=== PATIENT | female | born 1955 | race Caucasian/White ===

== ENCOUNTER 2020-06-14 12:54 | Inpatient (IN) | payer MEDICARE, OTHER ==
[~2020-06-14] VITALS: Ht 157.5 cm; Wt 63.5 kg
[2020-06-14] MEDS ORDERED: DEXTROSE 50%-WATER 25 GM/50 ML SYRINGE IVP PRN (15:30)
[2020-06-14 16:00] VITALS: BP 98/55
[2020-06-14] MEDS ORDERED: ACETAMINOPHEN 325 MG TABLET PO PRN (16:45)
[2020-06-14] MEDS: MetFORMIN HCL 500 MG TABLET PO SCH (17:39)
[2020-06-14 18:31] LABS: GLUCOMETER DEV NAME(LOC) 2WR.1C; GLUCOSE,POINT OF CARE 207 MG/DL (70-110)
[2020-06-14] MEDS: INSULIN REGULAR, HUMAN 100 UNITS/ML SQ PRN ×2 (18:38→23:21)
[2020-06-14] MEDS: SENNA 187 MG TABLET PO SCH ×2 (20:45→21:00)
[2020-06-14] MEDS: DOCUSATE SODIUM 100 MG CAPSULE PO SCH ×2 (20:45→21:00)
[2020-06-14] MEDS: ATORVASTATIN CALCIUM 40 MG TABLET PO SCH (20:45)
[2020-06-14] MEDS: MELATONIN 3 MG TABLET PO PRN (23:26)
[2020-06-15] VITALS: BP 128/60
[2020-06-15] MEDS ORDERED: METF-960 PO (04:20)
[2020-06-15] MEDS ORDERED: GLIP10 PO (04:20)
[2020-06-15 05:34] LABS: GLUCOMETER DEV NAME(LOC) 2WR.1C; GLUCOSE,POINT OF CARE 214 MG/DL (70-110)
[2020-06-15] MEDS: INSULIN REGULAR, HUMAN 100 UNITS/ML SQ PRN ×3 (05:42→18:11)
[2020-06-15 06:03] LABS: GLUCOMETER DEV NAME(LOC) 2WR.2B; GLUCOSE,POINT OF CARE 182 MG/DL (70-110)
[2020-06-15 06:44] LABS: BASOPHILS % (AUTO) 0.9 % (0.0-2.0); EOSINOPHILS % (AUTO) 1.8 % (1.0-6.0); HEMOGLOBIN 12.1 g/dL (12.0-16.0); LYMPHOCYTES # (AUTO) 1.8 K/uL (1.0-4.8); LYMPHOCYTES % (AUTO) 18.3 % (22.0-44.0); MEAN CORPUSCULAR HEMOGLOBIN 32.5 pg (26.0-34.0); MEAN CORPUSCULAR HGB CONC 33.6 G/dL (31.0-37.0); MEAN CORPUSCULAR VOLUME 97 fL (80-100); MONOCYTES # (AUTO) 0.7 K/uL (0.1-1.0); MONOCYTES % (AUTO) 7.1 % (2.0-9.0); NEUTROPHILS # (AUTO) 7.1 K/uL (1.8-7.7); NEUTROPHILS % (AUTO) 71.9 % (40.0-70.0); PLATELET COUNT (AUTO) 389 K/uL (150-450); RED BLOOD CELL COUNT(AUTO) 3.72 MIL/uL (4.00-5.20); RED CELL DISTRIBUTION WIDTH 13.2 % (11.5-14.5)
[2020-06-15 07:53] LABS: ALANINE AMINOTRANSFERASE 9 U/L (12-78); ALBUMIN 2.7 g/dL (3.4-5.0); ALKALINE PHOSPHATASE 103 U/L (46-116); ANION GAP 7 mmol/L (8-16); ASPARTATE AMINOTRANSFERASE 21 U/L (15-37); BILIRUBIN,TOTAL 0.2 mg/dL (0.1-1.0); CALCIUM, TOTAL 9.5 mg/dL (8.8-10.5); CARBON DIOXIDE 28 mmol/L (22-29); CHLORIDE 104 mmol/L (98-107); CREATININE 0.76 mg/dL (0.60-1.30); GLOMERULAR FILTR. RATE CALC > 60 mL/min (>60); GLUCOSE,RANDOM 186 mg/dL (70-110); POTASSIUM 4.5 mmol/L (3.5-5.1); SODIUM SERUM 139 mmol/L (136-145); TOTAL PROTEIN, SERUM 6.9 g/dL (6.4-8.2); UREA NITROGEN, BLOOD 24 mg/dL (7-18)
[2020-06-15] MEDS: ASPIRIN 325 MG TABLET PO SCH (08:02)
[2020-06-15] MEDS: MetFORMIN HCL 500 MG TABLET PO SCH ×2 (08:03→18:10)
[2020-06-15] MEDS: ENOXAPARIN SODIUM 40 MG/0.4 ML PF SYRINGE SQ SCH (08:03)
[2020-06-15] MEDS: GlipiZIDE 10 MG TABLET PO SCH ×2 (08:03→18:10)
[2020-06-15] MEDS: DOCUSATE SODIUM 100 MG CAPSULE PO SCH ×2 (08:03→21:02)
[2020-06-15 08:06] VITALS: BP 106/59
[2020-06-15 13:27] LABS: GLUCOMETER DEV NAME(LOC) 2WR.2B; GLUCOSE,POINT OF CARE 142 MG/DL (70-110)
[2020-06-15 20:44] LABS: GLUCOMETER DEV NAME(LOC) 2WR.2B; GLUCOSE,POINT OF CARE 167 MG/DL (70-110)
[2020-06-15] MEDS: INSULIN GLARGINE,HUM.REC.ANLOG 100 UNITS/ML SQ SCH (20:59)
[2020-06-15] MEDS: BETAMETHASONE DIP 0.05% 15 GM OINTMENT TP SCH (21:01)
[2020-06-15] MEDS: SENNA 187 MG TABLET PO SCH (21:02)
[2020-06-15] MEDS: ATORVASTATIN CALCIUM 40 MG TABLET PO SCH (21:02)
[2020-06-15] MEDS: MELATONIN 3 MG TABLET PO PRN (21:02)
[2020-06-15 22:12] VITALS: BP 95/56
[2020-06-15 23:12] LABS: GLUCOMETER DEV NAME(LOC) 2WR.2B; GLUCOSE,POINT OF CARE 164 MG/DL (70-110)
[2020-06-15 23:30] LABS: GLUCOMETER DEV NAME(LOC) 2WR.1C; GLUCOSE,POINT OF CARE 110 MG/DL (70-110)
[2020-06-16] VITALS: BP 107/59
[2020-06-16 06:13] LABS: GLUCOMETER DEV NAME(LOC) 2WR.2B; GLUCOSE,POINT OF CARE 135 MG/DL (70-110)
[2020-06-16] MEDS: GlipiZIDE 10 MG TABLET PO SCH ×2 (07:28→17:42)
[2020-06-16] MEDS: ASPIRIN 325 MG TABLET PO SCH (07:28)
[2020-06-16] MEDS: DOCUSATE SODIUM 100 MG CAPSULE PO SCH ×2 (07:28→20:35)
[2020-06-16] MEDS: MetFORMIN HCL 500 MG TABLET PO SCH ×2 (07:28→17:42)
[2020-06-16] MEDS: BETAMETHASONE DIP 0.05% 15 GM OINTMENT TP SCH ×2 (07:29→20:54)
[2020-06-16] MEDS: ENOXAPARIN SODIUM 40 MG/0.4 ML PF SYRINGE SQ SCH (07:29)
[2020-06-16 08:14] VITALS: BP 116/62
[2020-06-16 13:16] LABS: GLUCOMETER DEV NAME(LOC) 2WR.2B; GLUCOSE,POINT OF CARE 133 MG/DL (70-110)
[2020-06-16 16:50] VITALS: BP 113/59
[2020-06-16 20:12] LABS: APPEARANCE,URINE CLEAR (CLEAR); BILIRUBIN,URINE NEGATIVE (NEGATIVE); GLUCOSE, URINE (UA) NEGATIVE (NEGATIVE); KETONES,URINE NEGATIVE (NEGATIVE); LEUKOCYTE ESTERASE ,URINE NEGATIVE (NEGATIVE); NITRATE,URINE NEGATIVE (NEGATIVE); OCCULT BLOOD,URINE NEGATIVE (NEGATIVE); PH,URINE 7.5 (5.0-8.0); PROTEIN,URINE NEGATIVE (NEGATIVE)
[2020-06-16 20:13] LABS: GLUCOMETER DEV NAME(LOC) 2WR.2B; GLUCOSE,POINT OF CARE 137 MG/DL (70-110)
[2020-06-16 20:21] LABS: RBC,URINE None Seen /HPF (0-2); WBC,URINE 0-2 /HPF (0-5); YEAST,URINE Moderate /HPF (None Seen)
[2020-06-16 20:22] LABS: BACTERIA,URINE Rare /HPF (None Seen); SQUAMOUS EPITHELIAL CELL,UR Few /LPF (None Seen)
[2020-06-16] MEDS: ATORVASTATIN CALCIUM 40 MG TABLET PO SCH (20:36)
[2020-06-16] MEDS: TAMSULOSIN HCL 0.4 MG CAPSULE PO SCH (20:36)
[2020-06-16] MEDS: SENNA 187 MG TABLET PO SCH (20:36)
[2020-06-16] MEDS: INSULIN GLARGINE,HUM.REC.ANLOG 100 UNITS/ML SQ SCH (21:03)
[2020-06-16 21:45] LABS: GLUCOMETER DEV NAME(LOC) 2WR.2B; GLUCOSE,POINT OF CARE 167 MG/DL (70-110)
[2020-06-17] VITALS: BP 110/63
[2020-06-17 00:05] LABS: GLUCOMETER DEV NAME(LOC) 2WR.2B; GLUCOSE,POINT OF CARE 131 MG/DL (70-110)
[2020-06-17] MEDS: INSULIN REGULAR, HUMAN 100 UNITS/ML SQ PRN (05:29)
[2020-06-17 05:38] LABS: GLUCOMETER DEV NAME(LOC) 2WR.1C; GLUCOSE,POINT OF CARE 186 MG/DL (70-110)
[2020-06-17 08:00] VITALS: BP 111/57
[2020-06-17] MEDS: ASPIRIN 325 MG TABLET PO SCH (08:47)
[2020-06-17] MEDS: GlipiZIDE 10 MG TABLET PO SCH ×2 (08:47→17:45)
[2020-06-17] MEDS: DOCUSATE SODIUM 100 MG CAPSULE PO SCH ×2 (08:48→21:00)
[2020-06-17] MEDS: MetFORMIN HCL 500 MG TABLET PO SCH ×2 (08:48→17:45)
[2020-06-17] MEDS: ENOXAPARIN SODIUM 40 MG/0.4 ML PF SYRINGE SQ SCH (08:48)
[2020-06-17] MEDS: CALCIPOTRIENE 0.005% 60 GM CREAM TP SCH ×2 (10:20→21:06)
[2020-06-17 15:13] VITALS: BP 104/55
[2020-06-17 15:58] LABS: GLUCOMETER DEV NAME(LOC) 2WR.1C; GLUCOSE,POINT OF CARE 139 MG/DL (70-110)
[2020-06-17 17:54] LABS: GLUCOMETER DEV NAME(LOC) 2WR.1C; GLUCOSE,POINT OF CARE 120 MG/DL (70-110)
[2020-06-17] MEDS: SENNA 187 MG TABLET PO SCH ×2 (21:00→21:06)
[2020-06-17] MEDS: TAMSULOSIN HCL 0.4 MG CAPSULE PO SCH (21:06)
[2020-06-17] MEDS: ATORVASTATIN CALCIUM 40 MG TABLET PO SCH (21:06)
[2020-06-17] MEDS: INSULIN GLARGINE,HUM.REC.ANLOG 100 UNITS/ML SQ SCH (21:08)
[2020-06-17 22:37] LABS: GLUCOMETER DEV NAME(LOC) 2WR.1C; GLUCOSE,POINT OF CARE 138 MG/DL (70-110)
[2020-06-17 23:49] LABS: GLUCOMETER DEV NAME(LOC) 2WR.1C; GLUCOSE,POINT OF CARE 113 MG/DL (70-110)
[2020-06-18 02:51] VITALS: BP 107/65
[2020-06-18 06:18] LABS: GLUCOMETER DEV NAME(LOC) 2WR.2B; GLUCOSE,POINT OF CARE 140 MG/DL (70-110)
[2020-06-18] MEDS: GlipiZIDE 10 MG TABLET PO SCH (08:07)
[2020-06-18] MEDS: MetFORMIN HCL 500 MG TABLET PO SCH ×2 (08:07→17:44)
[2020-06-18] MEDS: CALCIPOTRIENE 0.005% 60 GM CREAM TP SCH ×2 (08:07→20:15)
[2020-06-18] MEDS: ASPIRIN 325 MG TABLET PO SCH (08:08)
[2020-06-18] MEDS: ENOXAPARIN SODIUM 40 MG/0.4 ML PF SYRINGE SQ SCH (08:08)
[2020-06-18] MEDS: DOCUSATE SODIUM 100 MG CAPSULE PO SCH ×2 (08:09→20:18)
[2020-06-18 08:13] VITALS: BP 101/59
[2020-06-18 13:34] LABS: GLUCOMETER DEV NAME(LOC) 2WR.2B; GLUCOSE,POINT OF CARE 118 MG/DL (70-110)
[2020-06-18 15:08] VITALS: BP 102/54
[2020-06-18 17:55] LABS: GLUCOMETER DEV NAME(LOC) 2WR.2B; GLUCOSE,POINT OF CARE 99 MG/DL (70-110)
[2020-06-18] MEDS: INSULIN LISPRO 100 UNITS/ML SQ PRN (20:16)
[2020-06-18] MEDS: INSULIN GLARGINE,HUM.REC.ANLOG 100 UNITS/ML SQ SCH (20:16)
[2020-06-18] MEDS: SENNA 187 MG TABLET PO SCH (20:18)
[2020-06-18] MEDS: TAMSULOSIN HCL 0.4 MG CAPSULE PO SCH (20:18)
[2020-06-18] MEDS: ATORVASTATIN CALCIUM 40 MG TABLET PO SCH (20:18)
[2020-06-18 20:49] LABS: GLUCOMETER DEV NAME(LOC) 2WR.2B; GLUCOSE,POINT OF CARE 147 MG/DL (70-110)
[2020-06-19] VITALS: BP 108/61
[2020-06-19 05:47] LABS: GLUCOMETER DEV NAME(LOC) 2WR.2B; GLUCOSE,POINT OF CARE 90 MG/DL (70-110)
[2020-06-19 06:13] LABS: BASOPHILS % (AUTO) 0.9 % (0.0-2.0); HEMATOCRIT 36.5 % (36-46); HEMOGLOBIN 12.2 g/dL (12.0-16.0); LYMPHOCYTES # (AUTO) 2.1 K/uL (1.0-4.8); LYMPHOCYTES % (AUTO) 23.3 % (22.0-44.0); MEAN CORPUSCULAR HGB CONC 33.4 G/dL (31.0-37.0); MEAN CORPUSCULAR VOLUME 96 fL (80-100); MONOCYTES # (AUTO) 0.6 K/uL (0.1-1.0); MONOCYTES % (AUTO) 7.1 % (2.0-9.0); NEUTROPHILS # (AUTO) 6.1 K/uL (1.8-7.7); NEUTROPHILS % (AUTO) 66.7 % (40.0-70.0); PLATELET COUNT (AUTO) 324 K/uL (150-450); RED BLOOD CELL COUNT(AUTO) 3.82 MIL/uL (4.00-5.20); RED CELL DISTRIBUTION WIDTH 13.2 % (11.5-14.5)
[2020-06-19 06:44] LABS: ANION GAP 7 mmol/L (8-16); CALCIUM, TOTAL 9.1 mg/dL (8.8-10.5); CARBON DIOXIDE 26 mmol/L (22-29); CHLORIDE 106 mmol/L (98-107); CREATININE 0.74 mg/dL (0.60-1.30); GLOMERULAR FILTR. RATE CALC > 60 mL/min (>60); GLUCOSE,RANDOM 94 mg/dL (70-110); POTASSIUM 4.2 mmol/L (3.5-5.1); SODIUM SERUM 139 mmol/L (136-145); UREA NITROGEN, BLOOD 17 mg/dL (7-18)
[2020-06-19] MEDS: MULTIVITAMINS WITH MINERALS, THERAPEUTIC TABLET PO SCH (08:00)
[2020-06-19] MEDS: ENOXAPARIN SODIUM 40 MG/0.4 ML PF SYRINGE SQ SCH (08:00)
[2020-06-19] MEDS: FAMOTIDINE 20 MG TABLET PO SCH (08:00)
[2020-06-19] MEDS: BETAMETHASONE DIP 0.05% 15 GM OINTMENT TP SCH ×2 (08:00→21:27)
[2020-06-19] MEDS: MetFORMIN HCL 500 MG TABLET PO SCH ×2 (08:00→17:37)
[2020-06-19] MEDS: ASPIRIN 325 MG TABLET PO SCH (08:00)
[2020-06-19] MEDS: DOCUSATE SODIUM 100 MG CAPSULE PO SCH ×2 (08:03→21:23)
[2020-06-19 08:06] VITALS: BP 105/59
[2020-06-19 13:10] LABS: GLUCOMETER DEV NAME(LOC) 2WR.2B; GLUCOSE,POINT OF CARE 119 MG/DL (70-110)
[2020-06-19 15:28] VITALS: BP 112/55
[2020-06-19 18:31] LABS: GLUCOMETER DEV NAME(LOC) 2WR.2B; GLUCOSE,POINT OF CARE 124 MG/DL (70-110)
[2020-06-19] MEDS: ATORVASTATIN CALCIUM 40 MG TABLET PO SCH (21:23)
[2020-06-19] MEDS: SENNA 187 MG TABLET PO SCH (21:23)
[2020-06-19] MEDS: INSULIN GLARGINE,HUM.REC.ANLOG 100 UNITS/ML SQ SCH (21:23)
[2020-06-19] MEDS: TAMSULOSIN HCL 0.4 MG CAPSULE PO SCH (21:24)
[2020-06-19] MEDS: INSULIN LISPRO 100 UNITS/ML SQ PRN (21:25)
[2020-06-19 22:11] LABS: GLUCOMETER DEV NAME(LOC) 2WR.2B; GLUCOSE,POINT OF CARE 183 MG/DL (70-110)
[2020-06-20 01:30] VITALS: BP 111/60
[2020-06-20 05:41] LABS: GLUCOMETER DEV NAME(LOC) 2WR.2B; GLUCOSE,POINT OF CARE 95 MG/DL (70-110)
[2020-06-20 07:22] VITALS: BP 106/56
[2020-06-20] MEDS: ENOXAPARIN SODIUM 40 MG/0.4 ML PF SYRINGE SQ SCH (07:26)
[2020-06-20] MEDS: DOCUSATE SODIUM 100 MG CAPSULE PO SCH ×2 (07:26→20:33)
[2020-06-20] MEDS: MetFORMIN HCL 500 MG TABLET PO SCH ×2 (07:26→18:13)
[2020-06-20] MEDS: MULTIVITAMINS WITH MINERALS, THERAPEUTIC TABLET PO SCH (07:26)
[2020-06-20] MEDS: ASPIRIN 325 MG TABLET PO SCH (07:26)
[2020-06-20] MEDS: FAMOTIDINE 20 MG TABLET PO SCH (07:26)
[2020-06-20] MEDS: BETAMETHASONE DIP 0.05% 15 GM OINTMENT TP SCH ×2 (07:26→20:33)
[2020-06-20] MEDS ORDERED: FLUCONAZOLE 150 MG TABLET PO ONE (09:00)
[2020-06-20 10:36] LABS: GLUCOMETER DEV NAME(LOC) 2WR.1C; GLUCOSE,POINT OF CARE 65 MG/DL (70-110)
[2020-06-20 14:36] LABS: GLUCOMETER DEV NAME(LOC) 2WR.1C; GLUCOSE,POINT OF CARE 101 MG/DL (70-110)
[2020-06-20 15:28] VITALS: BP 96/47
[2020-06-20 17:53] LABS: GLUCOMETER DEV NAME(LOC) 2WR.2B; GLUCOSE,POINT OF CARE 93 MG/DL (70-110)
[2020-06-20 20:25] LABS: GLUCOMETER DEV NAME(LOC) 2WR.2B; GLUCOSE,POINT OF CARE 119 MG/DL (70-110)
[2020-06-20] MEDS: ATORVASTATIN CALCIUM 40 MG TABLET PO SCH (20:32)
[2020-06-20] MEDS: SENNA 187 MG TABLET PO SCH (20:33)
[2020-06-20] MEDS: TAMSULOSIN HCL 0.4 MG CAPSULE PO SCH (20:33)
[2020-06-20] MEDS: INSULIN GLARGINE,HUM.REC.ANLOG 100 UNITS/ML SQ SCH (20:52)
[2020-06-21] VITALS: BP 121/63
[2020-06-21] MEDS: ENOXAPARIN SODIUM 40 MG/0.4 ML PF SYRINGE SQ SCH (07:48)
[2020-06-21] MEDS: BETAMETHASONE DIP 0.05% 15 GM OINTMENT TP SCH ×2 (07:48→20:17)
[2020-06-21] MEDS: MetFORMIN HCL 500 MG TABLET PO SCH ×2 (07:48→17:18)
[2020-06-21] MEDS: MULTIVITAMINS WITH MINERALS, THERAPEUTIC TABLET PO SCH (07:48)
[2020-06-21] MEDS: FAMOTIDINE 20 MG TABLET PO SCH (07:48)
[2020-06-21] MEDS: ASPIRIN 81 MG CHEWABLE TABLET PO SCH (07:49)
[2020-06-21] MEDS: DOCUSATE SODIUM 100 MG CAPSULE PO SCH ×2 (08:02→20:17)
[2020-06-21 08:15] VITALS: BP 124/56
[2020-06-21 12:26] LABS: GLUCOMETER DEV NAME(LOC) 2WR.1C; GLUCOSE,POINT OF CARE 100 MG/DL (70-110)
[2020-06-21 14:44] LABS: GLUCOMETER DEV NAME(LOC) 2WR.2B; GLUCOSE,POINT OF CARE 110 MG/DL (70-110)
[2020-06-21 16:06] VITALS: BP 132/84
[2020-06-21] MEDS: SENNA 187 MG TABLET PO SCH (20:17)
[2020-06-21] MEDS: ATORVASTATIN CALCIUM 40 MG TABLET PO SCH (20:17)
[2020-06-21] MEDS: TAMSULOSIN HCL 0.4 MG CAPSULE PO SCH (20:17)
[2020-06-21] MEDS: INSULIN LISPRO 100 UNITS/ML SQ PRN (20:20)
[2020-06-21] MEDS: INSULIN GLARGINE,HUM.REC.ANLOG 100 UNITS/ML SQ SCH (20:20)
[2020-06-21 21:07] LABS: GLUCOMETER DEV NAME(LOC) 2WR.1C; GLUCOSE,POINT OF CARE 131 MG/DL (70-110)
[2020-06-22 01:48] VITALS: BP 96/53
[2020-06-22 03:32] LABS: GLUCOMETER DEV NAME(LOC) 2WR.2B; GLUCOSE,POINT OF CARE 149 MG/DL (70-110)
[2020-06-22 06:12] LABS: GLUCOMETER DEV NAME(LOC) 2WR.1C; GLUCOSE,POINT OF CARE 135 MG/DL (70-110)
[2020-06-22] MEDS: DOCUSATE SODIUM 100 MG CAPSULE PO SCH ×2 (08:22→21:29)
[2020-06-22] MEDS: ASPIRIN 81 MG CHEWABLE TABLET PO SCH (08:22)
[2020-06-22] MEDS: MetFORMIN HCL 500 MG TABLET PO SCH ×2 (08:22→17:44)
[2020-06-22] MEDS: FAMOTIDINE 20 MG TABLET PO SCH (08:22)
[2020-06-22] MEDS: MULTIVITAMINS WITH MINERALS, THERAPEUTIC TABLET PO SCH (08:22)
[2020-06-22] MEDS: BETAMETHASONE DIP 0.05% 15 GM OINTMENT TP SCH ×2 (08:23→21:32)
[2020-06-22] MEDS: ENOXAPARIN SODIUM 40 MG/0.4 ML PF SYRINGE SQ SCH (08:23)
[2020-06-22 09:00] VITALS: BP 113/61
[2020-06-22] MEDS: INSULIN LISPRO 100 UNITS/ML SQ PRN (12:23)
[2020-06-22 16:14] LABS: GLUCOMETER DEV NAME(LOC) 2WR.1C; GLUCOSE,POINT OF CARE 144 MG/DL (70-110)
[2020-06-22 18:05] LABS: GLUCOMETER DEV NAME(LOC) 2WR.2B; GLUCOSE,POINT OF CARE 134 MG/DL (70-110)
[2020-06-22 18:14] VITALS: BP 122/48
[2020-06-22] MEDS: SENNA 187 MG TABLET PO SCH (21:28)
[2020-06-22] MEDS: TAMSULOSIN HCL 0.4 MG CAPSULE PO SCH (21:29)
[2020-06-22] MEDS: ATORVASTATIN CALCIUM 40 MG TABLET PO SCH (21:29)
[2020-06-22] MEDS: INSULIN GLARGINE,HUM.REC.ANLOG 100 UNITS/ML SQ SCH (21:31)
[2020-06-22 21:40] LABS: GLUCOMETER DEV NAME(LOC) 2WR.2B; GLUCOSE,POINT OF CARE 139 MG/DL (70-110)
[2020-06-23] VITALS: BP 126/54
[2020-06-23] MEDS ORDERED: BETA15OI TP (04:47)
[2020-06-23] MEDS ORDERED: TAMS-13 PO (04:47)
[2020-06-23] MEDS ORDERED: ASPI-1450 PO (04:47)
[2020-06-23] MEDS ORDERED: MULT-1133 PO (04:47)
[2020-06-23] MEDS ORDERED: ATOR40TA28 PO (04:47)
[2020-06-23] MEDS ORDERED: INSLAN SQ (04:47)
[2020-06-23] MEDS ORDERED: CALC560O TP (04:47)
[2020-06-23] MEDS ORDERED: METF-960 PO (04:47)
[2020-06-23] MEDS ORDERED: FAMO20 PO (04:47)
[2020-06-23 06:13] LABS: GLUCOMETER DEV NAME(LOC) 2WR.2B; GLUCOSE,POINT OF CARE 114 MG/DL (70-110)
[2020-06-23] MEDS: BETAMETHASONE DIP 0.05% 15 GM OINTMENT TP SCH ×2 (07:47→20:24)
[2020-06-23] MEDS: MetFORMIN HCL 500 MG TABLET PO SCH ×2 (07:47→17:30)
[2020-06-23] MEDS: ASPIRIN 81 MG CHEWABLE TABLET PO SCH (07:47)
[2020-06-23] MEDS: MULTIVITAMINS WITH MINERALS, THERAPEUTIC TABLET PO SCH (07:57)
[2020-06-23] MEDS: DOCUSATE SODIUM 100 MG CAPSULE PO SCH ×2 (07:58→20:10)
[2020-06-23] MEDS: FAMOTIDINE 20 MG TABLET PO SCH (07:58)
[2020-06-23] MEDS: ENOXAPARIN SODIUM 40 MG/0.4 ML PF SYRINGE SQ SCH (07:58)
[2020-06-23 08:17] VITALS: BP 128/62
[2020-06-23] MEDS: INSULIN LISPRO 100 UNITS/ML SQ PRN ×2 (12:25→20:21)
[2020-06-23 16:00] VITALS: BP 108/64
[2020-06-23 16:06] LABS: GLUCOMETER DEV NAME(LOC) 2WR.2B; GLUCOSE,POINT OF CARE 155 MG/DL (70-110)
[2020-06-23] MEDS: TAMSULOSIN HCL 0.4 MG CAPSULE PO SCH (20:10)
[2020-06-23] MEDS: ATORVASTATIN CALCIUM 40 MG TABLET PO SCH (20:10)
[2020-06-23] MEDS: SENNA 187 MG TABLET PO SCH (20:10)
[2020-06-23] MEDS: INSULIN GLARGINE,HUM.REC.ANLOG 100 UNITS/ML SQ SCH (20:20)
[2020-06-23 22:22] LABS: GLUCOMETER DEV NAME(LOC) 2WR.2B; GLUCOSE,POINT OF CARE 202 MG/DL (70-110)
[2020-06-23 22:41] LABS: GLUCOMETER DEV NAME(LOC) 2WR.1C; GLUCOSE,POINT OF CARE 139 MG/DL (70-110)
[2020-06-24 04:30] VITALS: BP 116/67
[2020-06-24 06:16] LABS: GLUCOMETER DEV NAME(LOC) 2WR.2B; GLUCOSE,POINT OF CARE 126 MG/DL (70-110)
[2020-06-24] MEDS: DOCUSATE SODIUM 100 MG CAPSULE PO SCH ×2 (07:49→21:05)
[2020-06-24] MEDS: ENOXAPARIN SODIUM 40 MG/0.4 ML PF SYRINGE SQ SCH (07:49)
[2020-06-24] MEDS: FAMOTIDINE 20 MG TABLET PO SCH (07:50)
[2020-06-24] MEDS: MULTIVITAMINS WITH MINERALS, THERAPEUTIC TABLET PO SCH (07:50)
[2020-06-24] MEDS: MetFORMIN HCL 500 MG TABLET PO SCH ×2 (07:50→18:53)
[2020-06-24] MEDS: CALCIPOTRIENE 0.005% 60 GM CREAM TP SCH ×2 (07:50→21:05)
[2020-06-24] MEDS: ASPIRIN 81 MG CHEWABLE TABLET PO SCH (07:50)
[2020-06-24 08:41] VITALS: BP 134/71
[2020-06-24] MEDS ORDERED: ERGOCALCIFEROL (VIT D2) 50,000 UNITS [1,250 MCG] CAPSULE PO SCH (09:00)
[2020-06-24 13:24] LABS: GLUCOMETER DEV NAME(LOC) 2WR.1C; GLUCOSE,POINT OF CARE 135 MG/DL (70-110)
[2020-06-24] MEDS: INSULIN LISPRO 100 UNITS/ML SQ PRN ×2 (17:26→20:58)
[2020-06-24 17:56] LABS: GLUCOMETER DEV NAME(LOC) 2WR.2B; GLUCOSE,POINT OF CARE 191 MG/DL (70-110)
[2020-06-24] MEDS: INSULIN GLARGINE,HUM.REC.ANLOG 100 UNITS/ML SQ SCH (20:59)
[2020-06-24] MEDS: TAMSULOSIN HCL 0.4 MG CAPSULE PO SCH (21:05)
[2020-06-24] MEDS: ATORVASTATIN CALCIUM 40 MG TABLET PO SCH (21:05)
[2020-06-24] MEDS: SENNA 187 MG TABLET PO SCH (21:05)
[2020-06-24 21:24] LABS: GLUCOMETER DEV NAME(LOC) 2WR.2B; GLUCOSE,POINT OF CARE 203 MG/DL (70-110)
[2020-06-24 22:57] VITALS: BP 149/74
[2020-06-25 00:50] VITALS: BP 112/65
[2020-06-25 06:06] LABS: GLUCOMETER DEV NAME(LOC) 2WR.2B; GLUCOSE,POINT OF CARE 136 MG/DL (70-110)
[2020-06-25 07:30] VITALS: BP 118/57
[2020-06-25] MEDS: ENOXAPARIN SODIUM 40 MG/0.4 ML PF SYRINGE SQ SCH (08:51)
[2020-06-25] MEDS: MULTIVITAMINS WITH MINERALS, THERAPEUTIC TABLET PO SCH (08:52)
[2020-06-25] MEDS: DOCUSATE SODIUM 100 MG CAPSULE PO SCH (08:52)
[2020-06-25] MEDS: FAMOTIDINE 20 MG TABLET PO SCH (08:52)
[2020-06-25] MEDS: MetFORMIN HCL 500 MG TABLET PO SCH ×2 (08:52→17:31)
[2020-06-25] MEDS: ASPIRIN 81 MG CHEWABLE TABLET PO SCH (08:52)
[2020-06-25] MEDS: CALCIPOTRIENE 0.005% 60 GM CREAM TP SCH ×2 (08:53→21:08)
[2020-06-25] MEDS: INSULIN LISPRO 100 UNITS/ML SQ PRN ×2 (11:46→20:58)
[2020-06-25 13:20] LABS: GLUCOMETER DEV NAME(LOC) 2WR.2B; GLUCOSE,POINT OF CARE 192 MG/DL (70-110)
[2020-06-25 16:00] VITALS: BP 104/59
[2020-06-25] MEDS ORDERED: MAGNESIUM HYDROXIDE SUSPENSION 30 ML UDCUP PO PRN (17:00)
[2020-06-25 17:47] LABS: GLUCOMETER DEV NAME(LOC) 2WR.1C; GLUCOSE,POINT OF CARE 130 MG/DL (70-110)
[2020-06-25] MEDS: ATORVASTATIN CALCIUM 40 MG TABLET PO SCH (20:53)
[2020-06-25] MEDS: SENNA 187 MG TABLET PO SCH (20:53)
[2020-06-25] MEDS: DOCUSATE SODIUM 250 MG CAPSULE PO SCH (20:53)
[2020-06-25] MEDS: TAMSULOSIN HCL 0.4 MG CAPSULE PO SCH (20:53)
[2020-06-25] MEDS: INSULIN GLARGINE,HUM.REC.ANLOG 100 UNITS/ML SQ SCH (20:57)
[2020-06-26 03:26] VITALS: BP 119/60
[2020-06-26 06:04] LABS: GLUCOMETER DEV NAME(LOC) 2WR.1C; GLUCOSE,POINT OF CARE 153 MG/DL (70-110)
[2020-06-26 07:25] LABS: BASOPHILS % (AUTO) 0.5 % (0.0-2.0); EOSINOPHILS % (AUTO) 2.4 % (1.0-6.0); HEMATOCRIT 35.5 % (36-46); HEMOGLOBIN 11.6 g/dL (12.0-16.0); LYMPHOCYTES # (AUTO) 1.9 K/uL (1.0-4.8); LYMPHOCYTES % (AUTO) 21.8 % (22.0-44.0); MEAN CORPUSCULAR HEMOGLOBIN 31.5 pg (26.0-34.0); MEAN CORPUSCULAR HGB CONC 32.7 G/dL (31.0-37.0); MEAN CORPUSCULAR VOLUME 96 fL (80-100); MONOCYTES # (AUTO) 0.6 K/uL (0.1-1.0); NEUTROPHILS # (AUTO) 5.9 K/uL (1.8-7.7); NEUTROPHILS % (AUTO) 68.3 % (40.0-70.0); PLATELET COUNT (AUTO) 244 K/uL (150-450); RED BLOOD CELL COUNT(AUTO) 3.68 MIL/uL (4.00-5.20); RED CELL DISTRIBUTION WIDTH 13.5 % (11.5-14.5)
[2020-06-26 07:28] LABS: ANION GAP 8 mmol/L (8-16); CALCIUM, TOTAL 9.3 mg/dL (8.8-10.5); CARBON DIOXIDE 26 mmol/L (22-29); CHLORIDE 103 mmol/L (98-107); CREATININE 0.53 mg/dL (0.60-1.30); GLOMERULAR FILTR. RATE CALC > 60 mL/min (>60); GLUCOSE,RANDOM 171 mg/dL (70-110); POTASSIUM 3.9 mmol/L (3.5-5.1); SODIUM SERUM 137 mmol/L (136-145); UREA NITROGEN, BLOOD 19 mg/dL (7-18)
[2020-06-26 08:00] VITALS: BP 95/52
[2020-06-26] MEDS: DOCUSATE SODIUM 250 MG CAPSULE PO SCH ×2 (08:34→20:42)
[2020-06-26] MEDS: ENOXAPARIN SODIUM 40 MG/0.4 ML PF SYRINGE SQ SCH (08:34)
[2020-06-26] MEDS: FAMOTIDINE 20 MG TABLET PO SCH (08:34)
[2020-06-26] MEDS: BETAMETHASONE DIP 0.05% 15 GM OINTMENT TP SCH ×2 (08:34→20:43)
[2020-06-26] MEDS: MetFORMIN HCL 500 MG TABLET PO SCH ×2 (08:34→17:24)
[2020-06-26] MEDS: MULTIVITAMINS WITH MINERALS, THERAPEUTIC TABLET PO SCH (08:34)
[2020-06-26] MEDS: ASPIRIN 81 MG CHEWABLE TABLET PO SCH (08:34)
[2020-06-26] MEDS: INSULIN LISPRO 100 UNITS/ML SQ PRN ×2 (12:43→20:40)
[2020-06-26 13:54] LABS: GLUCOMETER DEV NAME(LOC) 2WR.1C; GLUCOSE,POINT OF CARE 166 MG/DL (70-110)
[2020-06-26 16:00] VITALS: BP 102/60
[2020-06-26 17:33] LABS: GLUCOMETER DEV NAME(LOC) 2WR.2B; GLUCOSE,POINT OF CARE 114 MG/DL (70-110)
[2020-06-26] MEDS: INSULIN GLARGINE,HUM.REC.ANLOG 100 UNITS/ML SQ SCH (20:41)
[2020-06-26] MEDS: TAMSULOSIN HCL 0.4 MG CAPSULE PO SCH (20:42)
[2020-06-26] MEDS: SENNA 187 MG TABLET PO SCH (20:42)
[2020-06-26] MEDS: ATORVASTATIN CALCIUM 40 MG TABLET PO SCH (20:42)
[2020-06-26 22:14] LABS: GLUCOMETER DEV NAME(LOC) 2WR.2B; GLUCOSE,POINT OF CARE 221 MG/DL (70-110)
[2020-06-27 00:56] VITALS: BP 110/65
[2020-06-27] MEDS ORDERED: INSU100V SQ (04:11)
[2020-06-27 05:57] LABS: GLUCOMETER DEV NAME(LOC) 2WR.1C; GLUCOSE,POINT OF CARE 123 MG/DL (70-110)
[2020-06-27] MEDS: DOCUSATE SODIUM 250 MG CAPSULE PO SCH ×2 (07:59→20:36)
[2020-06-27] MEDS: MetFORMIN HCL 500 MG TABLET PO SCH ×2 (07:59→17:27)
[2020-06-27] MEDS: ASPIRIN 81 MG CHEWABLE TABLET PO SCH (07:59)
[2020-06-27] MEDS: MULTIVITAMINS WITH MINERALS, THERAPEUTIC TABLET PO SCH (07:59)
[2020-06-27] MEDS: ENOXAPARIN SODIUM 40 MG/0.4 ML PF SYRINGE SQ SCH (07:59)
[2020-06-27] MEDS: FAMOTIDINE 20 MG TABLET PO SCH (07:59)
[2020-06-27] MEDS: BETAMETHASONE DIP 0.05% 15 GM OINTMENT TP SCH ×2 (08:01→20:40)
[2020-06-27 08:05] VITALS: BP 115/65
[2020-06-27] MEDS: INSULIN LISPRO 100 UNITS/ML SQ PRN ×2 (12:32→17:29)
[2020-06-27 15:54] LABS: GLUCOMETER DEV NAME(LOC) 2WR.1C; GLUCOSE,POINT OF CARE 178 MG/DL (70-110)
[2020-06-27 16:10] VITALS: BP 112/63
[2020-06-27 17:58] LABS: GLUCOMETER DEV NAME(LOC) 2WR.2B; GLUCOSE,POINT OF CARE 179 MG/DL (70-110)
[2020-06-27] MEDS: TAMSULOSIN HCL 0.4 MG CAPSULE PO SCH (20:36)
[2020-06-27] MEDS: SENNA 187 MG TABLET PO SCH (20:36)
[2020-06-27] MEDS: ATORVASTATIN CALCIUM 40 MG TABLET PO SCH (20:36)
[2020-06-27] MEDS: INSULIN GLARGINE,HUM.REC.ANLOG 100 UNITS/ML SQ SCH (20:40)
[2020-06-27 21:42] LABS: GLUCOMETER DEV NAME(LOC) 2WR.2B; GLUCOSE,POINT OF CARE 131 MG/DL (70-110)
[2020-06-28 02:26] VITALS: BP 135/67
[2020-06-28 07:31] VITALS: BP 101/55
[2020-06-28] MEDS: MULTIVITAMINS WITH MINERALS, THERAPEUTIC TABLET PO SCH (08:25)
[2020-06-28] MEDS: DOCUSATE SODIUM 250 MG CAPSULE PO SCH ×2 (08:26→20:29)
[2020-06-28] MEDS: ASPIRIN 81 MG CHEWABLE TABLET PO SCH (08:26)
[2020-06-28] MEDS: ENOXAPARIN SODIUM 40 MG/0.4 ML PF SYRINGE SQ SCH (08:26)
[2020-06-28] MEDS: MetFORMIN HCL 500 MG TABLET PO SCH (08:26)
[2020-06-28] MEDS: FAMOTIDINE 20 MG TABLET PO SCH (08:26)
[2020-06-28] MEDS: BETAMETHASONE DIP 0.05% 15 GM OINTMENT TP SCH ×2 (08:27→21:53)
[2020-06-28 12:03] LABS: GLUCOMETER DEV NAME(LOC) 2WR.2B; GLUCOSE,POINT OF CARE 207 MG/DL (70-110)
[2020-06-28] MEDS: INSULIN LISPRO 100 UNITS/ML SQ PRN ×3 (12:36→20:32)
[2020-06-28 13:50] LABS: COVID AG,FIA SOURCE NASOPHARYNGEAL
[2020-06-28 15:22] LABS: GLUCOMETER DEV NAME(LOC) 2WR.1C; GLUCOSE,POINT OF CARE 133 MG/DL (70-110)
[2020-06-28 16:00] VITALS: BP 116/65
[2020-06-28] MEDS: MetFORMIN HCL 850 MG TABLET PO SCH (17:17)
[2020-06-28 18:10] LABS: GLUCOMETER DEV NAME(LOC) 2WR.1C; GLUCOSE,POINT OF CARE 197 MG/DL (70-110)
[2020-06-28] MEDS: SENNA 187 MG TABLET PO SCH (20:29)
[2020-06-28] MEDS: TAMSULOSIN HCL 0.4 MG CAPSULE PO SCH (20:29)
[2020-06-28] MEDS: ATORVASTATIN CALCIUM 40 MG TABLET PO SCH (20:29)
[2020-06-28] MEDS: INSULIN GLARGINE,HUM.REC.ANLOG 100 UNITS/ML SQ SCH (20:34)
[2020-06-28 22:10] LABS: GLUCOMETER DEV NAME(LOC) 2WR.2B; GLUCOSE,POINT OF CARE 141 MG/DL (70-110)
[2020-06-29] MEDS ORDERED: METF-961 PO (00:47)
[2020-06-29] MEDS ORDERED: DOCU-350 PO (00:49)
[2020-06-29] MEDS ORDERED: MULT-1239 PO (00:51)
[2020-06-29] MEDS ORDERED: ERGO500054 PO (00:51)
[2020-06-29] MEDS ORDERED: SENN8.6T90 PO (00:54)
[2020-06-29 05:39] VITALS: BP 107/55
[2020-06-29 05:41] LABS: GLUCOMETER DEV NAME(LOC) 2WR.1C; GLUCOSE,POINT OF CARE 126 MG/DL (70-110)
[2020-06-29 08:02] VITALS: BP 106/54
[2020-06-29] MEDS: MetFORMIN HCL 850 MG TABLET PO SCH (09:07)
[2020-06-29] MEDS: ENOXAPARIN SODIUM 40 MG/0.4 ML PF SYRINGE SQ SCH (09:07)
[2020-06-29] MEDS: ASPIRIN 81 MG CHEWABLE TABLET PO SCH (09:08)
[2020-06-29] MEDS: MULTIVITAMINS WITH MINERALS, THERAPEUTIC TABLET PO SCH (09:08)
[2020-06-29] MEDS: DOCUSATE SODIUM 250 MG CAPSULE PO SCH (09:08)
[2020-06-29] MEDS: FAMOTIDINE 20 MG TABLET PO SCH (09:08)
[2020-06-29] MEDS: BETAMETHASONE DIP 0.05% 15 GM OINTMENT TP SCH (09:09)
[2020-06-29] MEDS: INSULIN LISPRO 100 UNITS/ML SQ PRN (12:34)
[2020-06-29 16:20] LABS: GLUCOMETER DEV NAME(LOC) 2WR.1C; GLUCOSE,POINT OF CARE 190 MG/DL (70-110)
== END 2020-06-29 13:10 | disposition home health service (06) | DRG 56 ==
LOC: 2WR 14:14
PROVIDERS: ADMIT Physical Medicine & Rehabilitation; ATTEND Physical Medicine & Rehabilitation
DX: I69.351 Hemiplegia and hemiparesis following cerebral infarction affecting right dominant side (principal); I63.9 Cerebral infarction, unspecified; R47.01 Aphasia; R13.10 Dysphagia, unspecified; Z98.890 Other specified postprocedural states; E11.65 Type 2 diabetes mellitus with hyperglycemia; E78.5 Hyperlipidemia, unspecified; M06.9 Rheumatoid arthritis, unspecified; D64.9 Anemia, unspecified; E55.9 Vitamin D deficiency, unspecified
CPT/HCPCS: 74018; 74230; 80048; 80053; 81001; 82306; 82962; 85025; 87081; 87426; 92507; 92526; 92611; 97112; 97116; 97163; 97167; 97530; 97535; 99366; J1650; J1815; 36415-L1; 36415-TC